=== PATIENT | male | born 1965 | race Hispanic/Latino ===

== ENCOUNTER 2017-11-07 17:00 | Emergency (ER) | payer MEDICARE, SELFPAY ==
[2017-11-07 17:00] VITALS: PULSE 91
[2017-11-07 17:08] VITALS: BMI 33.9
[2017-11-07 17:12] VITALS: RESP 20
--- NOTE | 2017-11-07 17:46 | ED PDOC ---
Arrival/HPI - General Chief Complaint: Lower Extremity Problem/Injury Time Seen by Provider: 11/07/17 17:45 Historian: Patient - History of Present Illness Narrative History of Present Illness (Text): 11/07/17 17:46 This 51 yo male presents to this Emergency department complaining of left ankle pain x 7 days. Patient stated he slipped on ice as he was walking front steps of his house. Patient stated swelling has been progressively worsening. Patient denies knee pain, hip pain, Head injury, loc, dizziness, cms, n/v, chest pain, ZAFAR, fever, neck stiffness, or urinary symptoms. Patient also stated left frontal and maxillary sinus pain x 2 days. He is requesting ABX for sinusitis. Time/Duration: Other (see hpi) Quality: Aching Context: Home Past Medical History - Provider Review Nursing Documentation Reviewed: Yes - Infectious Disease Hx of Infectious Diseases: None - Tetanus Immunization Tetanus Immunization: Up to Date - Cardiac Hx Cardiac Disorders: Yes Hx Hypertension: Yes - Pulmonary Hx Respiratory Disorders: No - Neurological Hx Neurological Disorder: Yes Hx Seizures: Yes - HEENT Hx HEENT Disorder: No - Renal Hx Renal Disorder: No - Endocrine/Metabolic Hx Endocrine Disorders: Yes Hx Diabetes Mellitus Type 2: Yes - Hematological/Oncological Hx Blood Disorders: No - Integumentary Hx Dermatological Disorder: No - Musculoskeletal/Rheumatological Hx Musculoskeletal Disorders: Yes Hx Arthritis: Yes - Gastrointestinal Hx Gastrointestinal Disorders: No - Genitourinary/Gynecological Hx Genitourinary Disorders: No - Psychiatric Hx Psychophysiologic Disorder: Yes Hx Anxiety: Yes Hx Bipolar Disorder: Yes Hx Depression: Yes Hx Substance Use: No - Surgical History Hx Coronary Stent: Yes - Anesthesia Hx Anesthesia: Yes Hx Anesthesia Reactions: No Hx Malignant Hyperthermia: No - Suicidal Assessment Feels Threatened In Home Enviroment: No Family/Social History - Physician Review Nursing Documentation Reviewed: Yes Family/Social History: Other (noncontributory) Smoking Status: Heavy Smoker > 10 Cigarettes Daily Hx Alcohol Use: Yes (quit) Hx Substance Use: No Hx Substance Use Treatment: No Allergies/Home Meds Allergies/Adverse Reactions: Allergies No Known Allergies Allergy (Verified 03/02/15 15:07) Home Medications: Home Meds Medication Instructions Recorded Confirmed Aspirin [Aspir 81] 81 mg PO DAILY 02/24/12 11/07/17 Divalproex Sodium [Depakote] 500 mg PO BID 02/24/12 11/07/17 Atenolol [Tenormin] 25 mg PO DAILY 12/29/14 11/07/17 amLODIPine [Norvasc] 5 mg PO DAILY 12/29/14 11/07/17 LORazepam [Ativan] 0.5 mg PO BID 01/20/15 11/07/17 Meclizine [Meclizine*] 25 mg PO DAILY 02/11/15 11/07/17 Review of Systems - Review of Systems Constitutional: Normal. absent: Fatigue, Weight Change, Fevers, Night Sweats Eyes: Normal ENT: Sinus Congestion Respiratory: Normal Cardiovascular: Normal. absent: Chest Pain, Palpitations Gastrointestinal: Normal. absent: Abdominal Pain, Nausea, Vomiting Genitourinary Male: Normal. absent: Dysuria, Frequency, Hematuria Musculoskeletal: Other ((+) right ankle pain and swelling). absent: Back Pain, Neck Pain Skin: Normal. absent: Rash Neurological: Normal. absent: Headache, Dizziness, Focal Weakness, Gait Changes , Speech Changes, Facial Droop, Disequilibrium Endocrine: Normal Hemo/Lymphatic: Normal Psychiatric: Normal Physical Exam Vital Signs Temp Pulse Resp BP Pulse Ox 11/07/17 19:15 98 F 75 20 123/72 99 11/07/17 19:13 98 F 75 20 124/71 100 11/07/17 17:00 98.6 F 70 20 157/93 H 95 Temperature: Afebrile Blood Pressure: Normal Pulse: Regular Respiratory Rate: Normal Appearance: Positive for: Well-Appearing, Non-Toxic, Comfortable Pain Distress: None Mental Status: Positive for: Alert and Oriented X 3 - Systems Exam Head: Present: Atraumatic, Normocephalic, Tenderness (mild tenderness left maxillary area. No skin lesion, no swelling), Other (no raccoon sign. no casillas sign) Pupils: Present: PERRL Extroacular Muscles: Present: EOMI. No: Entrapment Conjunctiva: Present: Normal Ears: Present: Normal, NORMAL TM, Other (no hemotympanum) Mouth: Present: Moist Mucous Membranes Nose (External): Present: Atraumatic Nose (Internal): Present: Normal Inspection Neck: Present: Normal Range of Motion. No: Meningeal Signs, MIDLINE TENDERNESS , Paraspinal Tenderness Respiratory/Chest: Present: Clear to Auscultation, Good Air Exchange. No: Respiratory Distress, Accessory Muscle Use Cardiovascular: Present: Regular Rate and Rhythm, Normal S1, S2. No: Murmurs Abdomen: Present: Normal Bowel Sounds. No: Tenderness, Distention, Peritoneal Signs Back: Present: Normal Inspection Upper Extremity: Present: Normal Inspection, Normal ROM. No: Cyanosis, Edema Lower Extremity: Present: NORMAL PULSES, Tenderness, Swelling, Neurovascularly Intact, Capillary Refill < 2 s, Other ((+) right ankle joint is mild swollen. Tenderness is all around ankle joint. [place] test was negative. no calf tenderness). No: Edema, Erythema, Deformity, Temperature Abnormalties Neurological: Present: GCS=15, CN II-XII Intact, Speech Normal, Motor Func Grossly Intact, Normal Sensory Function, Normal Cerebellar Funct, Gait Normal Skin: Present: Warm, Dry, Normal Color. No: Rashes Psychiatric: Present: Alert, Oriented x 3, Normal Insight, Normal Concentration Medical Decision Making ED Course and Treatment: 11/07/17 18:54 Re-evaluation. Patient feels better. Discussed results and plan with patient who expresses understanding. All questions answered and there is agreement with the plan to discharge home with instructions. Patient stable for discharge. Return if symptoms persist or worsen Re-evaluation Time: 18:54 Reassessment Condition: Re-examined, Improved - RAD Interpretation Narrative RAD Interpretations (Text): 11/07/17 18:55 Ankle x-rays: (+) posterior malleoulus Fx. Radiology Orders: 11/07/17 17:52 ANKLE RIGHT 3 VIEWS ROUTINE [RAD] Stat - Medication Orders Current Medication Orders: Discontinued Medications Amoxicillin (Amoxil 500 Mg Cap) 500 mg PO STAT STA PRN Reason: Protocol Stop: 11/07/17 17:54 Last Admin: 11/07/17 18:18 Dose: 500 mg Ketorolac Tromethamine (Toradol) 30 mg IM STAT STA Stop: 11/07/17 17:54 Last Admin: 11/07/17 18:19 Dose: Not Given Non-Admin Reason: Patient Refused MAR Pain Assessment Document 11/07/17 18:19 GMI (Rec: 11/07/17 18:19 [id number]) Pain Reassessment Is this a pain reassessment? Yes Sleep Is patient sleeping during reassessment? No Presence of Pain Presence of Pain Yes Ketorolac Tromethamine (Toradol) 30 mg IM STAT STA Stop: 11/07/17 18:30 Last Admin: 11/07/17 18:41 Dose: 30 mg MAR Pain Assessment Document 11/07/17 18:41 GMI (Rec: 11/07/17 18:42 [id number]) Pain Reassessment Is this a pain reassessment? Yes Sleep Is patient sleeping during reassessment? No Presence of Pain Presence of Pain Yes Location Left, Right or Bilateral Right Pain Location Body Site Foot Description Description Constant Intensity of Pain at present 5 Pain Behavior Facial Grimacing Alleviating Factors/Management Relaxation Techniques Techniques IM Administration Charges Document 11/07/17 18:41 GMI (Rec: 11/07/17 18:42 [id number] Injection Site MAR Injection Site Right Deltoid Charges for Administration # of IM Administrations 1 - Procedure PROCEDURE NOTE (Text): 11/07/17 18:55 PROCEDURE: SPLINT APPLICATION Applied by Bobbin Dumper, supervised by Emergency Provider. Location: ankle Procedure: The area of the splint was appropriately positioned. A 5 inch ortho glass, posterior splint was applied. Post-procedure: Good position. Neurovascular status remains intact. Patient tolerated the procedure well with no immediate complications. Disposition/Present on Arrival - Present on Arrival Any Indicators Present on Arrival: No History of DVT/PE: No History of Uncontrolled Diabetes: No Urinary Catheter: No History of Decub. Ulcer: No History Surgical Site Infection Following: None - Disposition Have Diagnosis and Disposition been Completed?: Yes Diagnosis: Ankle fracture, Sinusitis Disposition: HOME/ ROUTINE Disposition Time: 18:56 Patient Plan: Discharge Condition: GOOD Discharge Instructions (ExitCare): Ankle Fracture (ED), Sinusitis (ED) Additional Instructions: Call orthopedist doctor for follow up visit. call Dr. Wills for further evaluation Keep ankle elevated, ice, rest, cane. Return to emergency if pain worsen. Prescriptions: Amoxicillin [Amoxil 500 mg Cap] 500 mg PO TID #30 cap Famotidine [Pepcid] 40 mg PO DAILY #10 tablet Naproxen 500 mg PO BID PRN #14 tab PRN Reason: Pain, Severe (8-10) Referrals: Reinier Randall MD [Staff Provider] - Follow up with primary Forms: [employer] (Albanian), WORK NOTE
[2017-11-07 19:14] VITALS: PULSE 75; TEMP 98
[2017-11-07 19:16] VITALS: BP 123/72; O2SAT 99
--- NOTE | 2017-11-08 10:44 | RAD ---
PROCEDURE: Right Ankle Radiographs. HISTORY: pain s/p trauma COMPARISON: None FINDINGS: BONES: There is an acute nondisplaced fracture in the posterior malleolus of the tibia. Bone alignment is normal. There is normal bone mineralization. There is a prominent dorsal calcaneal enthesophyte. JOINTS: There is a small joint effusion. The talar dome is normal. The ankle mortise is not widened SOFT TISSUES: There is mild periarticular soft tissue swelling. OTHER FINDINGS: None. IMPRESSION: Acute nondisplaced fracture in the posterior malleolus and mild periarticular soft tissue swelling.
== END 2017-11-07 19:19 | disposition home or self-care (01) ==
LOC: ED 17:00
DX: S82.891A Other fracture of right lower leg, initial encounter for closed fracture (principal); W00.0XXA Fall on same level due to ice and snow, initial encounter; Y92.007 Garden or yard of unspecified non-institutional (private) residence as the place of occurrence of the external cause
CPT/HCPCS: 29515; 73610; 96372; 99284; J1885

== ENCOUNTER 2017-12-21 16:15 | Emergency (ER) | payer MEDICARE, MEDICAID ==
[2017-12-21 16:15] VITALS: PULSE 91
[2017-12-21 16:23] VITALS: BMI 19.5
--- NOTE | 2017-12-21 16:37 | ED PDOC ---
Arrival/HPI - General Chief Complaint: High Blood Pressure Time Seen by Provider: 12/21/17 16:25 Historian: Patient, EMS - History of Present Illness Time/Duration: Prior to Arrival Symptom Course: Unchanged Associated Symptoms (Text): 12/21/17 16:34 Patient reports he has not taken his amlodipine 5 mg and atenolol 50 mg for the last 2 weeks. He reports that his old physician no longer takes his insurance. He was at a new physician today and his blood pressure was elevated and he was directed to the emergency department. He also complains of depression and severe anxiety due to his mother being ill and dying. No suicidal or homicidal ideation. Denies visual or auditory hallucinations. He agrees to see a counselor. He had been an alcoholic for many years and stopped drinking and then was on a binge again over the last several weeks. He states he has not had a drink in 3 or 4 days. Past Medical History - Infectious Disease Hx of Infectious Diseases: None - Tetanus Immunization Tetanus Immunization: Up to Date - Cardiac Hx Cardiac Disorders: Yes Hx Hypertension: Yes - Pulmonary Hx Respiratory Disorders: No - Neurological Hx Neurological Disorder: Yes Hx Seizures: Yes - HEENT Hx HEENT Disorder: No - Renal Hx Renal Disorder: No - Endocrine/Metabolic Hx Endocrine Disorders: Yes Hx Diabetes Mellitus Type 2: Yes - Hematological/Oncological Hx Blood Disorders: No - Integumentary Hx Dermatological Disorder: No - Musculoskeletal/Rheumatological Hx Musculoskeletal Disorders: Yes Hx Arthritis: Yes - Gastrointestinal Hx Gastrointestinal Disorders: No - Genitourinary/Gynecological Hx Genitourinary Disorders: No - Psychiatric Hx Psychophysiologic Disorder: Yes Hx Anxiety: Yes Hx Bipolar Disorder: Yes Hx Depression: Yes Hx Substance Use: No - Surgical History Hx Coronary Stent: Yes - Anesthesia Hx Anesthesia: Yes Hx Anesthesia Reactions: No Hx Malignant Hyperthermia: No - Suicidal Assessment Feels Threatened In Home Enviroment: No Family/Social History - Physician Review Nursing Documentation Reviewed: Yes Family/Social History: Unknown Family HX Smoking Status: Heavy Smoker > 10 Cigarettes Daily Hx Alcohol Use: Yes (quit) Hx Substance Use: No Hx Substance Use Treatment: No Allergies/Home Meds Allergies/Adverse Reactions: Allergies No Known Allergies Allergy (Verified 12/21/17 16:24) Home Medications: Home Meds Medication Instructions Recorded Confirmed No Known Home Med 12/21/17 12/21/17 Review of Systems - Physician Review All systems were reviewed & negative as marked: Yes - Review of Systems Constitutional: Fatigue. absent: Fevers Respiratory: absent: SOB Cardiovascular: absent: Chest Pain, Palpitations, Syncope Gastrointestinal: absent: Abdominal Pain, Nausea, Vomiting Genitourinary Male: absent: Dysuria, Frequency, Hematuria Neurological: absent: Headache, Dizziness, Focal Weakness Psychiatric: Anxiety, Depression. absent: Suicidal Ideation Physical Exam Vital Signs Temp Pulse Resp BP Pulse Ox 12/21/17 17:48 154/87 H 12/21/17 17:31 98.3 F 67 16 174/85 H 98 12/21/17 16:40 97 H 198/96 H 12/21/17 16:39 97 H 198/96 H 12/21/17 16:28 98.6 F 105 H 20 198/86 H 97 Temperature: Afebrile Blood Pressure: Hypertensive Pulse: Tachycardic Respiratory Rate: Normal Appearance: Positive for: Well-Appearing, Non-Toxic, Comfortable Pain Distress: None Mental Status: Positive for: Alert and Oriented X 3 - Systems Exam Head: Present: Atraumatic, Normocephalic Pupils: Present: PERRL Extroacular Muscles: Present: EOMI Conjunctiva: Present: Normal Mouth: Present: Moist Mucous Membranes Pharnyx: No: ERYTHEMA, EXUDATE, TONSILS ENLARGED Neck: Present: Normal Range of Motion Respiratory/Chest: Present: Clear to Auscultation, Good Air Exchange, Decreased Breath Sounds. No: Respiratory Distress, Accessory Muscle Use Cardiovascular: Present: Regular Rate and Rhythm, Normal S1, S2, Tachycardic. No: Murmurs Abdomen: Present: Normal Bowel Sounds. No: Tenderness, Distention, Peritoneal Signs, Rebound, Guarding Upper Extremity: Present: Normal Inspection. No: Cyanosis, Edema Lower Extremity: Present: Normal Inspection. No: Edema Neurological: Present: GCS=15, CN II-XII Intact, Speech Normal, Motor Func Grossly Intact Skin: Present: Warm, Dry, Normal Color. No: Rashes Psychiatric: Present: Alert, Oriented x 3, Normal Insight, Normal Concentration , Normal Affect, Anxious, Depressed Mood. No: Agitated, Suicidal Ideation, Homicidal Ideation, Delusional, Hallucinations, Intoxicated, Lethargic Medical Decision Making ED Course and Treatment: 12/21/17 16:37 Patient does agree to see a counselor, and crisis has been called. 12/21/17 17:02 EKG shows normal sinus rhythm rate approximately [address] or T-wave changes 12/21/17 18:12 Blood pressure and heart rate are improved. Patient is waiting for crisis evaluation. 12/21/17 18:26 Crisis is here now to see the patient. His UDS is currently pending. I spoke with the lab who reports that they do not have the right sample to run the test. Another sample has been supplied to the lab. 12/21/17 18:45 Urine drug screen is pending. Care of this patient will be endorsed to the night emergency Department physician, , pending crisis evaluation to make final disposition. It is anticipated the patient will be able to be discharged home and he will need prescriptions for his blood pressure medication. - Lab Interpretations Lab Results: 12/21/17 16:25 12/21/17 16:25 Lab Results 12/21/17 17:20: Urine Color Yellow, Urine Appearance Clear, Urine pH 6.0, Ur Specific [place] 1.015, Urine Protein Negative, Urine Glucose (UA) Negative, Urine Ketones Negative, Urine Blood Trace-intact H, Urine Nitrate Negative, Urine Bilirubin Negative, Urine Urobilinogen 0.2, Ur Leukocyte Esterase Negative , Urine RBC Negative, Urine WBC Negative 12/21/17 16:25: Alcohol, Quantitative < 10 12/21/17 16:25: Salicylates < 1 L, Acetaminophen < 10.0 L 12/21/17 16:25: Sodium 136, Potassium 3.9, Chloride 104, Carbon Dioxide 23, Anion Gap 14, BUN 14, Creatinine 0.7 L, Est GFR ( Amer) > 60, Est GFR ( Non-Af Amer) > 60, Random Glucose 97, Calcium 9.6, Total Bilirubin 0.6, AST 38, ALT 29, Alkaline Phosphatase 85, Troponin I < 0.01, Total Protein 8.0, Albumin 4.1, Globulin 3.9, Albumin/Globulin Ratio 1.0 L 12/21/17 16:25: WBC 10.3 D, RBC 4.89, Hgb 15.6, Hct 45.1, MCV 92.2, MCH 31.9, MCHC 34.6, RDW 13.2, Plt Count 175, MPV 9.2, Gran % 53.3, Lymph % (Auto) 34.7, [place] % (Auto) 8.7 H, Eos % (Auto) 3.0, Baso % (Auto) 0.3, Gran # 5.47, Lymph # ( Auto) 3.6 H, [place] # (Auto) 0.9 H, Eos # (Auto) 0.3, Baso # (Auto) 0.03 - RAD Interpretation Radiology Orders: 12/21/17 16:31 CHEST PORTABLE [RAD] Stat Chest one view shows no infiltrate effusion or cardiomegaly. [employer] Supervisor: ED Physician - Medication Orders Current Medication Orders: Discontinued Medications Amlodipine Besylate (Norvasc) 5 mg PO STAT STA Stop: 12/21/17 16:33 Last Admin: 12/21/17 16:39 Dose: 5 mg MAR Pulse and Blood Pressure Document 12/21/17 16:39 HP (Rec: 12/21/17 16:40 HP [id number]) Pulse Pulse Rate (60-90 beats/min) 97 Blood Pressure Blood Pressure (100/60-150/90 mm Hg) 198/96 Atenolol (Tenormin) 50 mg PO STAT STA Stop: 12/21/17 16:33 Last Admin: 12/21/17 16:40 Dose: 50 mg MAR Pulse and Blood Pressure Document 12/21/17 16:40 HP (Rec: 12/21/17 16:40 HP [id number]) Pulse Pulse Rate (60-90 beats/min) 97 Blood Pressure Blood Pressure (100/60-150/90 mm Hg) 198/96 Clonidine HCl (Catapres) 0.2 mg PO ONCE ONE Stop: 12/21/17 16:34 Last Admin: 12/21/17 16:40 Dose: 0.2 mg MAR Pulse and Blood Pressure Document 12/21/17 16:40 HP (Rec: 12/21/17 16:40 HP [id number]) Pulse Pulse Rate (60-90 beats/min) 97 Blood Pressure Blood Pressure (100/60-150/90 mm Hg) 198/96 Disposition/Present on Arrival - Present on Arrival Any Indicators Present on Arrival: No History of DVT/PE: No History of Uncontrolled Diabetes: No Urinary Catheter: No History of Decub. Ulcer: No History Surgical Site Infection Following: None - Disposition Have Diagnosis and Disposition been Completed?: Yes Diagnosis: Anxiety state, Hypertension, Depression Disposition: HOME/ ROUTINE Disposition Time: 18:46 Patient Plan: Discharge Patient Problems: Current Active Problems Problem Status Onset Anxiety state Acute Depression Acute Hypertension Acute Condition: GOOD Referrals: Max Wills DO [Primary Care Provider] - Follow up with primary Forms: [employer] (Georgian)
[2017-12-21 16:52] LABS: ACETAMINOPHEN < 10.0 ug/ml (10.0-20.0); BASO # 0.03 K/mm3 (0.0-2.0); BASO % 0.3 % (0.0-3.0); EOS # 0.3 (0.0-0.7); GRAN # 5.47 (1.4-6.5); GRAN % 53.3 % (50.0-68.0); HEMOGLOBIN 15.6 g/dL (14.0-18.0); LYMPH # 3.6 (1.2-3.4); LYMPH % 34.7 % (22.0-35.0); MEAN CELL VOLUME 92.2 fl (80.0-105.0); MEAN CORPUSCULAR HEMOGLOBIN 31.9 pg (25.0-35.0); MEAN CORPUSCULAR HGB CONC 34.6 g/dl (31.0-37.0); MEAN PLATELET VOLUME 9.2 fl (7.0-11.0); MONO # 0.9 (0.1-0.6); MONO % 8.7 % (1.0-6.0); RBC 4.89 10^6/uL (3.5-6.1); RED CELL DISTRIBUTION WIDTH 13.2 % (11.5-14.5); SALICYLATE < 1 mg/dL (2.0-20.0); WHITE BLOOD COUNT 10.3 10^3/ul (4.5-11.0)
[2017-12-21 16:53] LABS: ALBUMIN 4.1 g/dL (3.0-4.8); CALCIUM 9.6 mg/dL (8.4-10.5); GFR AFRICAN-AMERICAN > 60; GFR NON-AFRICAN AMERICAN > 60
[2017-12-21 17:03] LABS: TROPONIN I < 0.01 ng/mL
[2017-12-21 17:05] LABS: ALT/SGPT 29 U/L (7-56); AST/SGOT 38 U/L (17-59); BLOOD UREA NITROGEN 14 mg/dL (7-21)
[2017-12-21 17:31] LABS: URINE BILIRUBIN NEGATIVE (NEGATIVE); URINE BLOOD TRACE-INTACT (NEGATIVE); URINE GLUCOSE (UA) NEGATIVE (NEGATIVE); URINE LEUKOCYTE ESTERASE NEGATIVE Leu/uL (NEGATIVE); URINE PROTEIN NEGATIVE mg/dL (<30 mg/dL); URINE UROBILINOGEN 0.2 E.U./dL (<1 E.U./dL)
[2017-12-21 17:32] VITALS: TEMP 98.3
[2017-12-21 17:36] LABS: URINE APPEARANCE CLEAR (CLEAR); URINE COLOR YELLOW (YELLOW)
[2017-12-21 17:45] LABS: URINE RBC NEGATIVE /hpf (0-2); URINE WBC NEGATIVE /hpf (0-6)
--- NOTE | 2017-12-21 18:18 | RAD ---
HISTORY: PES COMPARISON: 01/19/2015 FINDINGS: LUNGS: No active pulmonary disease. PLEURA: No significant pleural effusion identified, no pneumothorax apparent. CARDIOVASCULAR: No radiographic findings to suggest acute or significant cardiovascular disease. OSSEOUS STRUCTURES: No significant abnormalities. VISUALIZED UPPER ABDOMEN: Normal. OTHER FINDINGS: None. IMPRESSION: No active disease. No significant interval change compared to the prior examination(s).
[2017-12-21 19:01] LABS: BARBITURATES, UR NEGATIVE (NEGATIVE); BENZODIAZEPINES, UR NEGATIVE (NEGATIVE); OPIATES, UR NEGATIVE (NEGATIVE); PHENCYCLIDINE, UR NEGATIVE (NEGATIVE)
[2017-12-21 20:14] VITALS: RESP 18
--- NOTE | 2017-12-21 20:44 | ED PDOC ---
Physical Exam Vital Signs Temp Pulse Resp BP Pulse Ox 12/21/17 20:13 62 18 132/76 100 12/21/17 17:48 154/87 H 12/21/17 17:31 98.3 F 67 16 174/85 H 98 12/21/17 16:40 97 H 198/96 H 12/21/17 16:39 97 H 198/96 H 12/21/17 16:28 98.6 F 105 H 20 198/86 H 97 Medical Decision Making ED Course and Treatment: 12/21/17 19:34 Patient endorsed to me by Dr. Zapien. Patient has past medical history of hypertension and has been medically cleared and evaluated by PES for patient's depression. Patient denies any history of suicidal/homicidal ideation. Patient currently awaiting PES evaluation at this time prior to final disposition. 12/21/17 20:55 Pt. was cleared for d/c by PES.RX. refill on his prescriptions given until follow up with his doctor - Lab Interpretations Lab Results: 12/21/17 16:25 12/21/17 16:25 Lab Results 12/21/17 18:25: Urine Opiates Screen Negative, Urine Methadone Screen Negative, Ur Barbiturates Screen Negative, Ur Phencyclidine Scrn Negative, Ur Amphetamines Screen Negative, U Benzodiazepines Scrn Negative, U Oth Cocaine Metabols Negative, U Cannabinoids Screen Negative 12/21/17 17:20: Urine Color Yellow, Urine Appearance Clear, Urine pH 6.0, Ur Specific [place] 1.015, Urine Protein Negative, Urine Glucose (UA) Negative, Urine Ketones Negative, Urine Blood Trace-intact H, Urine Nitrate Negative, Urine Bilirubin Negative, Urine Urobilinogen 0.2, Ur Leukocyte Esterase Negative , Urine RBC Negative, Urine WBC Negative 12/21/17 16:25: Alcohol, Quantitative < 10 12/21/17 16:25: Salicylates < 1 L, Acetaminophen < 10.0 L 12/21/17 16:25: Sodium 136, Potassium 3.9, Chloride 104, Carbon Dioxide 23, Anion Gap 14, BUN 14, Creatinine 0.7 L, Est GFR ( Amer) > 60, Est GFR ( Non-Af Amer) > 60, Random Glucose 97, Calcium 9.6, Total Bilirubin 0.6, AST 38, ALT 29, Alkaline Phosphatase 85, Troponin I < 0.01, Total Protein 8.0, Albumin 4.1, Globulin 3.9, Albumin/Globulin Ratio 1.0 L 12/21/17 16:25: WBC 10.3 D, RBC 4.89, Hgb 15.6, Hct 45.1, MCV 92.2, MCH 31.9, MCHC 34.6, RDW 13.2, Plt Count 175, MPV 9.2, Gran % 53.3, Lymph % (Auto) 34.7, [place] % (Auto) 8.7 H, Eos % (Auto) 3.0, Baso % (Auto) 0.3, Gran # 5.47, Lymph # ( Auto) 3.6 H, [place] # (Auto) 0.9 H, Eos # (Auto) 0.3, Baso # (Auto) 0.03 - RAD Interpretation Radiology Orders: 12/21/17 16:31 CHEST PORTABLE [RAD] Stat - Medication Orders Current Medication Orders: Discontinued Medications Amlodipine Besylate (Norvasc) 5 mg PO STAT STA Stop: 12/21/17 16:33 Last Admin: 12/21/17 16:39 Dose: 5 mg MAR Pulse and Blood Pressure Document 12/21/17 16:39 HP (Rec: 12/21/17 16:40 HP [id number]) Pulse Pulse Rate (60-90 beats/min) 97 Blood Pressure Blood Pressure (100/60-150/90 mm Hg) 198/96 Atenolol (Tenormin) 50 mg PO STAT STA Stop: 12/21/17 16:33 Last Admin: 12/21/17 16:40 Dose: 50 mg MAR Pulse and Blood Pressure Document 12/21/17 16:40 HP (Rec: 12/21/17 16:40 HP [id number]) Pulse Pulse Rate (60-90 beats/min) 97 Blood Pressure Blood Pressure (100/60-150/90 mm Hg) 198/96 Clonidine HCl (Catapres) 0.2 mg PO ONCE ONE Stop: 12/21/17 16:34 Last Admin: 12/21/17 16:40 Dose: 0.2 mg MAR Pulse and Blood Pressure Document 12/21/17 16:40 HP (Rec: 12/21/17 16:40 HP [id number]) Pulse Pulse Rate (60-90 beats/min) 97 Blood Pressure Blood Pressure (100/60-150/90 mm Hg) 198/96 - Scribe Statement The provider has reviewed the documentation as recorded by the Melissaibe Stephania Arriola Provider Scribe Attestation: All medical record entries made by the Scribe were at my direction and personally dictated by me. I have reviewed the chart and agree that the record accurately reflects my personal performance of the history, physical exam, medical decision making, and the department course for this patient. I have also personally directed, reviewed, and agree with the discharge instructions and disposition. Disposition/Present on Arrival - Present on Arrival Any Indicators Present on Arrival: No History of DVT/PE: No History of Uncontrolled Diabetes: No Urinary Catheter: No History of Decub. Ulcer: No History Surgical Site Infection Following: None - Disposition Have Diagnosis and Disposition been Completed?: Yes Diagnosis: Anxiety state, Hypertension, Depression Disposition: HOME/ ROUTINE Disposition Time: 20:47 Patient Plan: Discharge Condition: GOOD Discharge Instructions (ExitCare): Depression, Adult (DC), High Blood Pressure (DC) Additional Instructions: Take meds as prescribed/follow up with your doctyor this week Prescriptions: amLODIPine [Norvasc] 5 mg PO DAILY #30 tab Atenolol [Tenormin] 25 mg PO DAILY #30 tab Referrals: Max Wills DO [Primary Care Provider] - Follow up with primary Forms: [employer] (Ukrainian)
[2017-12-22 04:08] VITALS: BP 135/82; PULSE 64; O2SAT 98
--- NOTE | 2017-12-22 10:46 | CARD ---
APPROVED REPORT EKG Measurement Heart [id number] ID [id number] <Conclusion> Normal sinus rhythm Normal ECG
== END 2017-12-21 20:45 | disposition home or self-care (01) ==
LOC: ED 16:15
DX: I10 Essential (primary) hypertension (principal); F41.9 Anxiety disorder, unspecified; F32.9 Major depressive disorder, single episode, unspecified; E11.9 Type 2 diabetes mellitus without complications; F17.210 Nicotine dependence, cigarettes, uncomplicated
CPT/HCPCS: 71045; 80053; 81001; 84484; 85025; 90791; 93005; 99284; G0480